=== PATIENT | male | born 1955 | race Caucasian/White ===

== ENCOUNTER 2016-07-15 07:18 | Emergency (ER) | payer BC ==
[~2016-07-15] VITALS: Ht 172.7 cm; Wt 77.1 kg
[~2016-07-15 07:18] MED LIST: EFFIENT10 MG PO; ELIQUIS5 MG PO; HYDROCODONE-AP1 EAC6 PO; KEFLEX500 MG PO; LIPITOR80 MG PO; LISINOPRIL2.5 MG PO; NITROSTAT0.4 MG SUBLING; NOHOMEMEDICATIONS; NORCO 5-325 TA1 EACH PO; PACERONE 200 M200 M1 PO; PROTONIX 20 MG20 M1 PO; TOPROL XL25 MG PO; ULTRACET TABLET1 TAB PO; WELLBUTRIN XL300 M1 PO
[2016-07-15 07:19] VITALS: BP 151/88
[2016-07-15] MEDS ORDERED: EFFIENT10 MG PO (07:22)
[2016-07-15] MEDS ORDERED: NAPROSYN500 MG PO (08:20)
== END 2016-07-15 08:31 | disposition home or self-care (01) ==
LOC: ER 07:18
DX: S93.492A Sprain of other ligament of left ankle, initial encounter (principal); Z95.5 Presence of coronary angioplasty implant and graft; I25.2 Old myocardial infarction; I11.9 Hypertensive heart disease without heart failure; E78.5 Hyperlipidemia, unspecified; Z98.890 Other specified postprocedural states; Z96.0 Presence of urogenital implants; Z88.1 Allergy status to other antibiotic agents; Z88.6 Allergy status to analgesic agent; Z91.018 Allergy to other foods; F17.210 Nicotine dependence, cigarettes, uncomplicated; F10.99 Alcohol use, unspecified with unspecified alcohol-induced disorder; X58.XXXA Exposure to other specified factors, initial encounter; Y93.89 Activity, other specified; Y92.89 Other specified places as the place of occurrence of the external cause; Y99.8 Other external cause status

== ENCOUNTER → 2020-03-15 | Outpatient (CLI) | payer BC, OTHER ==
[~2020-03-15] MED LIST changes: +NAPROSYN500 MG PO
== END ==
LOC: SJCVCIMAG 08:17
PROVIDERS: ATTEND Internal Medicine Cardiovascular Disease
DX: I65.23 Occlusion and stenosis of bilateral carotid arteries (principal); I10 Essential (primary) hypertension; I73.9 Peripheral vascular disease, unspecified; I77.1 Stricture of artery; M79.601 Pain in right arm; Z95.828 Presence of other vascular implants and grafts; Z87.891 Personal history of nicotine dependence

== ENCOUNTER 2020-04-05 10:47 | Inpatient (IN) | payer BC, OTHER ==
[~2020-04-05] VITALS: Ht 172.7 cm; Wt 83.9 kg
--- NOTE | ~2020-04-05 | HC ---
[facility] [place] [address] [place] [address] CONSULTATION Name: IVA DOLL Room #: 354-P ADM IN M.R.#: [id number] Admission: 04/05/20 Attend Phys: Wendi Galeana MD Discharge: Date of : 57 Report #: [id number] THIS REPORT FOR: cc: Sheldon Garcia,Sharif Fleming MD ~ DATE OF SERVICE: 04/09/2020 We were asked to see the patient by the hospitalists. HISTORY OF PRESENT ILLNESS: The patient is a 64-year-old who is COVID-19 positive. The patient was admitted on 04/05 with dizziness. The patient stated that his symptoms started when he was getting out of the shower, called 911 as of note was that the patient tested positive for COVID on 03/28/2020. The patient has a history of coronary artery disease, hyperlipidemia, hypertension and bypass surgery done on 10/24/2015. The patient also has a history of known carotid artery stenosis with a known total occlusion of the left internal carotid artery and a high-grade lesion on the right side. The patient takes Effient and Prasugrel. Since admission in the hospital, the patient has had a CT angiogram that shows the chronic occlusion of the left internal carotid and a 90% proximal internal carotid lesion. The patient states that yesterday his vision was bad. The patient was unable to see much of anything on the right side, but he states that this improved 99% back to normal. There is no other new neurologic complaint. CURRENT MEDICATIONS: Acetaminophen, ondansetron, acyclovir, methylprednisolone, Plavix, lorazepam. ALLERGIES: The patient claims to be allergic to ASPIRIN, AMOXICILLIN and ORANGES. I reviewed the findings of the CT angiogram with the patient and discussed it in light of his symptoms and history. The patient is scheduled to see an hearing and speech assistant. I have suggested that we allow the Ophthalmology consult to occur and to allow the patient to rebound from his COVID diagnosis. The patient is currently on Eliquis and Effient and this should be sufficient protection. The Eliquis we can stop prior to surgery, but the Effient we can continue for its antiplatelet effect. [facility] [address] [place] [address] CONSULTATION Name: IVA DOLL Room #: 354-P ADM IN M.R.#: [id number] Admission: 04/05/20 Attend Phys: Wendi Galeana MD Discharge: Date of : 57 Report #: [id number] Risks and details, options and alternatives were discussed. The patient understands all of this and he agrees with this approach. I will discuss case with the other physicians. Thank you for the consult. By: 1703 10 Sharif Mohamud MD /nt
--- NOTE | ~2020-04-05 | EMS ---
[address] [address] EMS Patient Care Report Name: IVA DOLL Room #: PRE M.R.#: [id number] Admission: Attend Phys: Discharge: Date of : 57 Report #: [id number] THIS REPORT FOR: //name// Report Transmitted: 04/05/2020 10:35 EMS Care Summary [facility] MED-ACT Incident [id number] @ 04/05/2020 10:10 Incident Location [address] [place] [address] Patient IVA DOLL Male, 64 Years 1955 Patient Address [address] [place] [address] Patient History Hypertension (HTN),Hyperlipidemia,Cardiac - Stent, Patient Allergies Aspirin,Amoxicillin, Patient Medications Prasugrel, Metoprolol, Losartan, Rosuvastatin, Chief Complaint dizziness Disposition Transported No Lights/[place] Dispatch Reason Sick Person Transported To [facility] Narrative 1143 arrived on scene to find a male pt lying supine in bed. Pt reports that he is covid positive and tested positive 8 days prior. Pt reports that his symptoms have been mild until he had vomiting x1 last night and acute onset of severe dizziness this morning. Assessment of eyes show nystagmus. Pt denies [facility] [address] [place] [address] EMS Patient Care Report Name: IVA DOLL Room #: PRE Alfonzo#: [id number] Admission: Attend Phys: Discharge: Date of : 57 Report #: [id number] hx of nystagmus or vertigo. Pt denies chest pain, shortness of breath or nausea. Pt reports hx of cardiac, HTN, DM. Pt requests transport to [facility]. Pt was assisted to the cot and packaged for transport. During transport, pt vital signs remained stable and condition unchanged. At [facility] arrival, pt taken to ED room 1. Pt report given to receiving RN. Pt transferred to hospital bed without incident and bed rails left up. Initial Vitals @10:21P: 104,SpO2: 97,[place] Suspected: false @10:19P: 109,R: 16,BP: 137/84,Pain: 0/10,GCS: 15,Temp: 98.3F,Glucose: 114,SpO2: 97,Revised Trauma: 12, @10:30P: 103,R: 16,BP: 158/95,GCS: 15,SpO2: 97,Revised Trauma: 12, @10:40P: 102,R: 16,BP: 136/88,SpO2: 96, Assessments @10:17MENTAL:No Abnormalities,SKIN:No Abnormalities,HEENT:Eyes: Left: Other,Eyes: Right: Other,Head/Face: No Abnormalities,Neck/Airway: No Abnormalities,LUNG SOUNDS:General: No Abnormalities,Left Upper: No Abnormalities,Right Upper: No Abnormalities,Left Lower: No Abnormalities,Right Lower: No Abnormalities,ABDOMEN:General: No Abnormalities,Left Upper: No Abnormalities,Right Upper: No Abnormalities,Left Lower: No Abnormalities,Right Lower: No Abnormalities,PELVIS//GI:No Abnormalities,EXTREMITIES:Left Arm: No Abnormalities,Right Arm: No Abnormalities,Left Leg: No Abnormalities,Right Leg: No Abnormalities,PULSE:NEURO:No Abnormalities, Impression Dizziness Procedures @10:2112-Lead ECG@10:18Surgical Mask on PatientResponse: Unchanged@10:17ALS AssessmentResponse: UnchangedSucceeded Timeline 10:08,Call Received 10:08,Psap Call 10:10,Dispatched 10:10,En Route 10:15,On Scene 10:16,At Patient 10:17,ALS Assessment,Response: UnchangedSucceeded, 10:18,Surgical Mask on Patient,Response: Unchanged 10:19,BP: 137/84 M,PULSE: 109,RR: 16 R,SPO2: 97 Ox,ETCO2: ,B,PAIN: 0,GCS: 15, 10:21,12-Lead ECG, 10:21,BP: / M,PULSE: 104,RR: R,SPO2: 97 Ox,ETCO2: ,BG: ,PAIN: ,GCS: , [address] [address] EMS Patient Care Report Name: IVA DOLL Room #: PRE M.R.#: [id number] Admission: Attend Phys: Discharge: Date of : 57 Report #: [id number] 10:29,Depart Scene 10:30,BP: 158/95 M,PULSE: 103,RR: 16 R,SPO2: 97 Ox,ETCO2: ,BG: ,PAIN: ,GCS: 15, 10:40,BP: 136/88 M,PULSE: 102,RR: 16 R,SPO2: 96 Ox,ETCO2: ,BG: ,PAIN: ,GCS: , 10:43,At Destination 11:12,Call Closed Disclaimer v1.1 Copyright 2020 [employer] This EMS Care Summary contains data elements from the applicable legal record (which may be displayed differently). It is designed to provide pertinent information for the following purposes: continuity of care, clinical quality, and state data reporting. The complete legal record is available to ED staff and administrators of the receiving hospital in [employer]'s Patient Tracker. All data is provided "as is."
[2020-04-05 10:51] VITALS: BP 120/84
[2020-04-05] MEDS ORDERED: DOXYCYCLINE 10100 M2 PO (11:00)
[2020-04-05 11:23] LABS: ABSOLUTE NEUTROPHILS 4.7 thou/uL (1.4-8.2); BASOPHILS 1.3 % (0.0-2.0); HEMATOCRIT 41.7 % (42.0-52.0); LYMPHOCYTES 11.2 % (24.0-44.0); MCH 31.8 pg (26.0-34.0); MCHC 33.6 g/dL (28.0-37.0); MCV 94.6 fL (80.0-100.0); MONOCYTES 5.9 % (1.0-8.0); PLATELET COUNT 279 thou/uL (150-400); POLYS 79.6 % (36.0-66.0); RBC 4.41 mil/uL (4.50-6.00); WBC 5.9 thou/uL (4.0-11.0)
[2020-04-05 11:30] LABS: ANION GAP 15 mmol/L (7-16); BUN 17 mg/dL (7-18); CHLORIDE 107 mmol/L (98-107); CO2 23 mmol/L (21-32); CREATININE 1.2 mg/dL (0.7-1.3); GLUCOSE 124 mg/dL (74-106); POTASSIUM 4.2 mmol/L (3.5-5.1); SODIUM 145 mmol/L (136-145)
[2020-04-05 11:40] LABS: ALBUMIN 3.1 g/dL (3.4-5.0); MAGNESIUM 2.2 mg/dL (1.8-2.4); SGOT 17 U/L (15-37); SGPT 22 U/L (30-65); TOTAL BILIRUBIN 0.6 mg/dL (0.2-1.0); TOTAL PROTEIN 7.5 g/dL (6.4-8.2); TROPONIN-I <0.06 ng/mL (<0.06)
[2020-04-05 12:01] LABS: APTT 27.9 Seconds (24.5-32.8)
[2020-04-05] MEDS ORDERED: ROSUVASTATIN CA20 MG PO (12:49)
[2020-04-05] MEDS ORDERED: PRASUGREL HCL10 MG PO (12:49)
[2020-04-05] MEDS ORDERED: LOSARTAN POTASS50 MG PO (12:50)
[2020-04-05 16:20] VITALS: BP 145/99
[2020-04-05 16:48] VITALS: BP 127/85
[2020-04-05 17:14] VITALS: BP 153/90
[2020-04-05] MEDS ORDERED: BENZONATATE100 MG PO (18:17)
[2020-04-05] MEDS ORDERED: LIVALO4 MG PO (18:18)
--- NOTE | 2020-04-05 18:43 | NUR ---
PT CARE ASSUMED AT 1712 FROM ER. A&Ox4. UP AT [place] IN ROOM. IV PATENT WITH NO REDNESS OR EDEMA, FLUIDS INFUSING. URINAL AT BEDSITE. ADMISSION COMPLEETED. UA NEEDED. SCD'S IN PLACE. COVID POS SINCE 03/28. DR. RAMOS CONSULTED. VITALS STABLE. MEDSURGE. CALL LIGHT IN REACH. WILL CONTINUE TO MONITOR.
[2020-04-05 19:23] VITALS: BP 137/78
[2020-04-05 21:37] VITALS: BP 137/78
--- NOTE | 2020-04-06 02:54 | NUR ---
PT AOX4. PT DENIES PAIN AND SOB WHILE AT REST WHILE ON ROOM AIR. PT REPORTS DIZZINESS WHEN CHANGING POSITIONS. PT RESTING IN BED THROUGHOUT SHIFT, FREQUENT REPOSITIONING ENCOURAGED. PT NOTED TO SHIFT INDEPENDENTLY WHILE IN BED. PT TOLERATING PO INTAKE OF FLUIDS AND HEART HEALTHY DIET WITHOUT ISSUE. PT DENIES NAUSEA. PT VOIDING PER URINAL. PT MEDICAL HISTORY REVEIWED IN CONSIDERATION WITH EMAR. ONCALL [employer] MAINFRAME DEVELOPER NOTIFIED, RECEIVED ORDERS TO DISCONTINUE PREVIOUS INFUSION RATE OF 125ML/HR AND TO START NS INFUSING AT 75ML/HR. PT ENCOURAGED TO NOTIFY STAFF FOR ALL NEEDS, CALL LIGHT WITHIN REACH, BED ALARM ON, BED IN LOWEST POSITION, FREQUENT MONITORING WILL CONTINUE.
[2020-04-06 03:56] VITALS: BP 162/98
[2020-04-06 07:29] VITALS: BP 142/87
[2020-04-06 10:14] LABS: HEMATOCRIT 39.8 % (42.0-52.0); HEMOGLOBIN 13.4 gm/dL (14.0-18.0); MCH 31.7 pg (26.0-34.0); MCHC 33.7 g/dL (28.0-37.0); MCV 93.9 fL (80.0-100.0); RBC 4.23 mil/uL (4.50-6.00); RDW 12.2 % (10.5-14.5); WBC 9.6 thou/uL (4.0-11.0)
[2020-04-06 10:34] LABS: CALCIUM 9.5 mg/dL (8.5-10.1); CREATININE 1.1 mg/dL (0.7-1.3); POTASSIUM 4.2 mmol/L (3.5-5.1)
[2020-04-06 10:40] LABS: URINE BILIRUBIN NEGATIVE (Negative); URINE BLOOD NEGATIVE (Negative); URINE CLARITY CLEAR; URINE COLOR YELLOW; URINE GLUCOSE-RANDOM* NEGATIVE (Negative); URINE KETONES TRACE (Negative); URINE LEUKOCYTES-REFLEX NEGATIVE (Negative); URINE NITRITE-REFLEX NEGATIVE (Negative); URINE PROTEIN (DIPSTICK) NEGATIVE (Negative); URINE UROBILINOGEN 0.2 E.U./dl (0.2-1.0)
[2020-04-06 10:47] LABS: AMP/METHAMP Negative (Negative); BARBITURATES Negative (Negative); BENZODIAZEPINES Negative (Negative); COCAINE Negative (Negative); METHADONE Negative (Negative); OPIATES Negative (Negative); PCP Negative (Negative)
--- NOTE | 2020-04-06 11:18 | NUR ---
PT CARE ASSUMED AT 0700. A&Ox4. IV PATENT WITH NO REDNESS OR EDEMA, FLUIDS INFUSING. RN WAS CALLED TO PT ROOM AT 0920 WITH COMPLAINTS OF CHESTPAIN AND RADIATING DOWN THE RIGHT ARM. VITALS TACHY, IN THE 180-200. STAT EKG PERFORMED, VTACH. ON THE UNIT. SEEN PT. NITRO GIVEN AT 0925, REPEATED x3 EVERY 5 MINUTES. ONE TIME DOSE OF MORPHINE GIVEN FOR CHESTPAIN. DR. DENISE NOTIFIED. RAPID CALLED. LABS DRAWN. STAT CARDIOLOGY CONSULT CALLED. STATUS CHAGED TO CCT. ONE TIME DOSE OF CARDIZEM IV PUSH GIVEN. AMIODERONE IV BOLUS GIVEN. AMIODERONE IV DRIP STARTED. PICC LINE PLACED. ON 2L FOR COMFORT. REPEAT 12 LEAD PERFORMED NOW RUNNING AFIB. PT STABILIZED AND SITTING CALMLY IN BED. CALL LIGHT IN REACH. WILL CONTINUE TO MONITOR. UPDATED.
--- NOTE | 2020-04-06 12:07 | NUR ---
VASCULAR ACCESS CALLED FOR PICC PLACEMENT. ABBI BASILIC WAS WIDELY PATENT WITH USG. PT'S LABS,MEDS,HX,ORDER AND CONSENT VERIFIED. DISCUSSED BENEFITS AND RISK OF PICC WITH PT, VERBALIZED UNDERSTANDING. 4FR DL POWER PICC TRIMMED TO 44CM INSERTED TO 3CM EXTERNAL WITH BRISK BR. STAT CXR ORDERED. PT TOLERATED WELL.
--- NOTE | 2020-04-06 12:37 | NUR ---
CXR CONFIRMED PICC IN SVC, RELEASED FOR IMMEDIATE USE PER PROTOCOL TO ROSALES RN
--- NOTE | 2020-04-06 14:04 | EKG ---
[place] [address] [facility] [place] [address] ELECTROCARDIOGRAM REPORT Name: IVA DOLL Room #: 354-P ADM IN M.R.#: [id number] Admission: 04/05/20 Attend Phys: Wendi Galeana MD Discharge: Date of : 57 Report #: [id number] [facility] ED Test Date: 2020-04-05 Test Time: 11:16:26 Pat Name: IVA DOLL Department: Room: 354 Gender: M Senior Information Security Consultant: unk : 1955 Requested By: Kahlil Ernst Order Number: [id number] MD: Nimesh Alvarez Measurements Intervals [place] Rate: 85 P: 77 NH: 149 QRS: 33 QRSD: 90 T: -32 QT: 348 QTc: 414 Interpretive Statements Sinus rhythm Borderline T abnormalities, inferior leads Baseline wander in lead(s) V4 Compared to ECG 02/12/2016 09:23:03 T-wave abnormality now present Electronically Signed On 04-06-2020 14:04:35 WEATHERIZATION COORDINATOR by Nimesh Alvarez [email or web address] <ELECTRONICALLY SIGNED> By: Nimesh Alvarez MD 04/06/20 1404 1116 111 Nimesh Alvarez MD /MARIANO
[2020-04-06 15:20] VITALS: BP 124/82
[2020-04-06 20:23] VITALS: BP 131/79
[2020-04-06 23:45] VITALS: BP 125/76
[2020-04-07 05:39] VITALS: BP 139/91
--- NOTE | 2020-04-07 06:13 | NUR ---
PT MAKING PROGRESS TOWARDS GOALS. PT ON AMIO GTT AT 0.MG/MIN OVERNIGHT. NOTED HEART RATE INITIALLY IN LOW 60'S UPON INITIAL ASSESSMENT. NOTED HR TRENDING DOWN TO MID 40'S OVERNIGHT. SEE VS FOR BLOOD PRESSURES. PT AT MIDNIGHT AND THIS AM WAS ALERT, ORIENTED AND DENIED ANY COMPLAINTS OF PAIN. HEART RHYTHM SINUS AND SINUS NATALIIA OVERNIGHT. NO NOTED TACHYCARDIA'S.
[2020-04-07 07:23] VITALS: BP 132/85
[2020-04-07 08:00] VITALS: BP 132/85
--- NOTE | 2020-04-07 12:21 | EKG ---
[address] [address] ELECTROCARDIOGRAM REPORT Name: IVA DOLL Room #: 354-P ADM IN M.R.#: [id number] Admission: 04/05/20 Attend Phys: Wendi Galeana MD Discharge: Date of : 57 Report #: [id number] [facility] Test Date: 2020-04-06 Test Time: 09:35:15 Pat Name: IVA DOLL Department: Room: 354 P Gender: M Risk Intern: JNGUM : 1955 Requested By: Sera Borrero Order Number: [id number] MD: Nimesh Alvarez Measurements Intervals [place] Rate: 196 P: [place]: QRS: 41 QRSD: 91 T: 223 QT: 244 QTc: 441 Interpretive Statements Atrial fibrillation with rapid V-rate with aberration Electronically Signed On 04-07-2020 12:21:29 BUNDLER by Nimesh Alvarez [email or web address] <ELECTRONICALLY SIGNED> By: Nimesh Alvarez MD 04/07/20 1221 0935 0935 Nimesh Alvarez MD /MARIANO
--- NOTE | 2020-04-07 14:13 | EKG ---
[place] [address] [employer] [address] ELECTROCARDIOGRAM REPORT Name: IVA DOLL Room #: 354-P ADM IN M.R.#: [id number] Admission: 04/05/20 Attend Phys: Wendi Galeana MD Discharge: Date of : 57 Report #: [id number] [facility] Test Date: 2020-04-06 Test Time: 09:50:41 Pat Name: IVA DOLL Department: Room: 354 P Gender: M Tree Inspector: : 1955 Requested By: Wendi Galeana Order Number: [id number] MD: Nimesh Alvarez Measurements Intervals [place] Rate: 178 P: [place]: QRS: 29 QRSD: 85 T: 205 QT: 240 QTc: 413 Interpretive Statements Atrial fibrillation with rapid V-rate Probable LVH with secondary repol abnrm ST depression, probably rate related Compared to ECG 04/06/2020 09:35:15 ST (T wave) deviation now present Electronically Signed On 04-07-2020 14:12:44 SUPERVISOR PICKING CREW by Nimesh Alvarez [email or web address] <ELECTRONICALLY SIGNED> By: Nimesh Alvarez MD 04/07/20 1412 0950 0950 Nimesh Alvarez MD /MARIANO
[2020-04-07 15:25] VITALS: BP 105/67
[2020-04-07 19:04] VITALS: BP 92/54
[2020-04-08 03:29] VITALS: BP 147/78
--- NOTE | 2020-04-08 03:38 | NUR ---
resting quietly, denies pain. complains that he has blurred vision tonight. blood pressure wnl's this morning. continues on iv fluids. careplan reviewed.
[2020-04-08 06:01] LABS: ABSOLUTE NEUTROPHILS 4.8 thou/uL (1.4-8.2); BASOPHILS 0.3 % (0.0-2.0); EOSINOPHILS 1.4 % (0.0-3.0); HEMATOCRIT 37.7 % (42.0-52.0); HEMOGLOBIN 12.5 gm/dL (14.0-18.0); LYMPHOCYTES 17.6 % (24.0-44.0); MCHC 33.1 g/dL (28.0-37.0); MCV 93.9 fL (80.0-100.0); MONOCYTES 8.8 % (1.0-8.0); PLATELET COUNT 266 thou/uL (150-400); POLYS 71.9 % (36.0-66.0); RBC 4.01 mil/uL (4.50-6.00); RDW 12.5 % (10.5-14.5); WBC 6.7 thou/uL (4.0-11.0)
[2020-04-08 06:22] LABS: ALBUMIN 2.4 g/dL (3.4-5.0); CALCIUM 8.6 mg/dL (8.5-10.1); PHOSPHORUS 2.5 mg/dL (2.6-4.7); POTASSIUM 4.2 mmol/L (3.5-5.1); TOTAL BILIRUBIN 0.4 mg/dL (0.2-1.0); TOTAL PROTEIN 5.6 g/dL (6.4-8.2)
[2020-04-08 08:13] VITALS: BP 138/88
[2020-04-08 11:23] VITALS: BP 121/73
[2020-04-08 16:02] VITALS: BP 117/80
[2020-04-08 19:26] VITALS: BP 143/87
[2020-04-08 20:00] VITALS: BP 143/87
[2020-04-09 00:03] VITALS: BP 136/85
[2020-04-09 04:07] VITALS: BP 135/86
--- NOTE | 2020-04-09 06:26 | NUR ---
Patient resting, VSS, afebrile, denies dizziness,nausea or queasiness but states that he is unable to read. When he closes right eye, he can read with the left and that right eye will not focus. Per assessments, patient straining to put images/letters together to make a clear word.MRI schedule this AM.Encouraging PO intake and UOP adequate
[2020-04-09 07:09] VITALS: BP 143/82
[2020-04-09 11:13] VITALS: BP 115/68
--- NOTE | 2020-04-09 15:09 | NUR ---
INITIAL ASSESSMENT: SW reviewed chart and spoke with nursing and attending physician. Pt was admitted from home due to vertigo. Pt placed in Enhanced Isolation due to having positive COVID test on 03/28. Pt is afebrile and not requiring O2. MRI of the brain ordered today. SW placed call to pt's room. No answer. Per chart, pt is alert/orientated x 4. Pt lives at home with his . Prior to admission, pt was independent with ADLs. No use of DME. 2 steps to enter the home and 12 steps inside. Discharge home is anticipated in 1-2 days. Therapy evals completed and pt should be able to return directly home with no needs. VINICIO is following to assist as needed with discharge planning.
[2020-04-09 19:28] VITALS: BP 138/80
[2020-04-10 02:55] VITALS: BP 120/85
--- NOTE | 2020-04-10 05:00 | NUR ---
Pt. stated he slept some last night. Verbalized he hasn't been sleeping good because he has a lot in his mind. Dizziness and problems with vision has resolved. Tolerating room air well and denies being short of breath. Cont. on enhanced precaution , afebrile. SB-SR. Voiding per urinal. Making progress towards care plan goals.
[2020-04-10 08:25] VITALS: BP 146/88
[2020-04-10 11:18] VITALS: BP 146/88
[2020-04-10] MEDS ORDERED: VITAMIN D325 MC1 PO (12:38)
[2020-04-10] MEDS ORDERED: ELIQUIS5 MG PO (12:38)
[2020-04-10] MEDS ORDERED: ACEROLA C500 MG PO (12:38)
[2020-04-10] MEDS ORDERED: PACERONE 200 M200 M1 PO (12:41)
--- NOTE | 2020-04-10 14:09 | NUR ---
DISCHARGE NOTE: SW reviewed chart and spoke with nursing and attending physician. Pt remains in Enhanced Isolation due to COVID-19. Pt is medically stable for discharge home today. Pt to follow up with CTS and opthamology as an outpatient. SW spoke with pt via phone. Introduced role of SW. Pt is alert/orientated x 4. Pt reports that he is independent with ADLs. No use of DME. No hx of HH services or post-acute placement. Pt's PCP is Dr. Garcia. Pt's to provide transportation home. No SW needs identified at this time, but is available to assist should needs arise.
[2020-04-10 15:28] VITALS: BP 146/88
[2020-04-10 15:49] VITALS: BP 133/84
[2020-04-10 16:00] VITALS: BP 146/88
--- NOTE | 2020-04-11 14:14 | HC ---
[facility] [place] [address] [place] [address] CONSULTATION Name: IVA DOLL Room #: 354-P [facility] IN M.R.#: [id number] Admission: 04/05/20 Attend Phys: Wendi Galeana MD Discharge: 04/10/20 Date of : 57 Report #: [id number] THIS REPORT FOR: cc: Sheldon Garcia,Nimesh Newman MD ~ CARDIOLOGY CONSULTATION REASON FOR CONSULTATION: Atrial fibrillation. HISTORY OF PRESENT ILLNESS: The patient is a 64-year-old male with a history of coronary artery disease status post CABG in 2016 and [place] in 2013, peripheral vascular disease with a known right-sided 60% lesion of the carotid artery as well as renal artery stenosis, status post renal artery stents. He also has history of hypertension, hyperlipidemia and last saw Dr. Steen in the office on 03/15/2020. His last stress echo was in 2017, which was nonischemic and an EF of 60%. The patient was admitted here to the hospital on 04/05/2020 and was diagnosed with COVID on 03/28/2020. The patient presented to the ER with main complaint of dizziness. He had an extensive neurologic evaluation including a CT scan, which showed no acute process, was seen by Neurology and was diagnosed with vertigo, likely related to his COVID. He has also been seen by Infectious Disease. This morning, the patient developed chest pain in the setting of atrial fibrillation with rapid ventricular response. I recommended initiation of IV amiodarone and after an hour or two, the patient converted back to sinus rhythm. The patient is currently doing well, in no acute distress and resting comfortably. PAST MEDICAL HISTORY: As above. SOCIAL HISTORY: Quit smoking. FAMILY HISTORY: Noncontributory. ALLERGIES: Have been reviewed. MEDICATIONS: Have been reviewed and include the IV amiodarone. He received some IV diltiazem once. He is receiving morphine, zinc, thiamine, Effient, metoprolol, losartan, famotidine, atorvastatin, vitamin C, ivermectin, nitro, Zofran. PHYSICAL EXAMINATION: VITAL SIGNS: Temperature 36.3, pulse 75, respirations 16, blood pressure 119/78, sats 93%. GENERAL: The patient is in no acute distress, resting comfortably. LABORATORY DATA: His white count is 9.6, hemoglobin 13, platelets 307. INR [address]. [address] [address] CONSULTATION Name: IVA DOLL Room #: 354-P [facility] IN M.R.#: [id number] Admission: 04/05/20 Attend Phys: Wendi Galeana MD Discharge: 04/10/20 Date of : 57 Report #: [id number] Chemistry: Sodium 137, potassium 4.2, creatinine 1.1. Troponin is negative. ProBNP is 495. Chest x-ray with no acute process. His initial EKG showed sinus rhythm with no ischemic changes. Then, he had several EKGs showing atrial fibrillation with rapid ventricular response. On telemetry shows that he had atrial fibrillation with rapid ventricular response with rates up to the 190s. Currently, he is in sinus rhythm at around 50-60. ASSESSMENT AND PLAN: Atrial fibrillation, new onset, likely related to his COVID infection. I recommend that we continue with IV amiodarone for the time being. We can transition over to oral amiodarone eventually. Given his multiple risk factors for stroke, I would consider initiation of anticoagulation at some point. We will continue to follow. <ELECTRONICALLY SIGNED> By: Nimesh Alvarez MD 04/11/20 1414 1453 1904 Nimesh Alvarez MD /nt
== END 2020-04-10 17:28 | disposition home or self-care (01) | DRG 69 ==
LOC: ER 10:47 → 3W 17:00 → EROBS 17:08 → 3W 17:08
PROVIDERS: Emergency Medicine; Internal Medicine; ADMIT Internal Medicine; ATTEND Internal Medicine
DX: G45.9 Transient cerebral ischemic attack, unspecified (principal); U07.1 COVID-19; J12.82 Pneumonia due to coronavirus disease 2019; I48.20 Chronic atrial fibrillation, unspecified; J44.0 Chronic obstructive pulmonary disease with (acute) lower respiratory infection; I25.10 Atherosclerotic heart disease of native coronary artery without angina pectoris; E78.5 Hyperlipidemia, unspecified; I10 Essential (primary) hypertension; Z96.0 Presence of urogenital implants; E78.00 Pure hypercholesterolemia, unspecified; H81.23 Vestibular neuronitis, bilateral; I73.9 Peripheral vascular disease, unspecified; I65.02 Occlusion and stenosis of left vertebral artery; I65.23 Occlusion and stenosis of bilateral carotid arteries; Z79.01 Long term (current) use of anticoagulants; Z95.5 Presence of coronary angioplasty implant and graft; I25.2 Old myocardial infarction; Z79.899 Other long term (current) drug therapy; Z88.6 Allergy status to analgesic agent; Z95.1 Presence of aortocoronary bypass graft; Z87.891 Personal history of nicotine dependence; Z23 Encounter for immunization
CPT/HCPCS: 10779; 10879; 27000

== ENCOUNTER → 2020-04-30 | Outpatient (CLI) | payer BC, OTHER ==
[~2020-04-30] VITALS: Ht 172.7 cm; Wt 77.6 kg
[~2020-04-30] MED LIST changes: +ACEROLA C500 MG PO; +BENZONATATE100 MG PO; +DOXYCYCLINE 10100 M2 PO; +LIVALO4 MG PO; +LOSARTAN POTASS50 MG PO; +PRASUGREL HCL10 MG PO; +ROSUVASTATIN CA20 MG PO; +VITAMIN D325 MC1 PO
[2020-04-30 07:23] VITALS: BP 132/80
[2020-04-30 07:40] LABS: HEMATOCRIT 42.6 % (42.0-52.0); MCH 31.2 pg (26.0-34.0); MCHC 32.9 g/dL (28.0-37.0); MCV 94.9 fL (80.0-100.0); RBC 4.49 mil/uL (4.50-6.00); RDW 13.6 % (10.5-14.5); WBC 7.2 thou/uL (4.0-11.0)
[2020-04-30 08:07] LABS: CALCIUM 9.3 mg/dL (8.5-10.1); CREATININE 1.2 mg/dL (0.7-1.3)
[2020-04-30 08:15] LABS: POTASSIUM 4.4 mmol/L (3.5-5.1)
== END | disposition home or self-care (01) ==
LOC: CATH 06:42
PROVIDERS: ATTEND Nuclear Medicine Nuclear Cardiology
DX: I65.23 Occlusion and stenosis of bilateral carotid arteries (principal); I70.1 Atherosclerosis of renal artery; I73.9 Peripheral vascular disease, unspecified; I10 Essential (primary) hypertension; I25.10 Atherosclerotic heart disease of native coronary artery without angina pectoris; I25.2 Old myocardial infarction; E78.5 Hyperlipidemia, unspecified; I48.91 Unspecified atrial fibrillation; Z98.890 Other specified postprocedural states; Z79.899 Other long term (current) drug therapy; Z79.01 Long term (current) use of anticoagulants; Z87.891 Personal history of nicotine dependence; Z95.1 Presence of aortocoronary bypass graft; Z88.8 Allergy status to other drugs, medicaments and biological substances; Z20.822 Contact with and (suspected) exposure to COVID-19

== ENCOUNTER 2020-06-09 05:15 | Emergency (ER) | payer BC, OTHER ==
[~2020-06-09] VITALS: Ht 172.7 cm; Wt 81.7 kg
[2020-06-09 05:19] VITALS: BP 176/101
[2020-06-09] MEDS ORDERED: XARELTO20 MG PO (05:25)
[2020-06-09] MEDS ORDERED: EFFIENT5 MG PO (05:28)
[2020-06-09 05:34] LABS: ABSOLUTE NEUTROPHILS 2.6 thou/uL (1.4-8.2); BASOPHILS 1.1 % (0.0-2.0); HEMATOCRIT 41.2 % (42.0-52.0); HEMOGLOBIN 13.6 gm/dL (14.0-18.0); LYMPHOCYTES 26.3 % (24.0-44.0); MCH 31.6 pg (26.0-34.0); MCHC 33.1 g/dL (28.0-37.0); MCV 95.6 fL (80.0-100.0); MONOCYTES 10.5 % (1.0-8.0); PLATELET COUNT 208 thou/uL (150-400); POLYS 54.1 % (36.0-66.0); RBC 4.31 mil/uL (4.50-6.00); RDW 14.8 % (10.5-14.5); WBC 4.8 thou/uL (4.0-11.0)
[2020-06-09 05:41] LABS: ANION GAP 8 mmol/L (7-16); BUN 20 mg/dL (7-18); CHLORIDE 104 mmol/L (98-107); CO2 25 mmol/L (21-32); CREATININE 1.4 mg/dL (0.7-1.3); GLUCOSE 109 mg/dL (74-106); POTASSIUM 4.6 mmol/L (3.5-5.1); SODIUM 137 mmol/L (136-145)
[2020-06-09 05:49] LABS: APTT 28.2 Seconds (24.5-32.8)
[2020-06-09 06:05] LABS: TROPONIN-I <0.06 ng/mL (<0.06)
[2020-06-09 07:01] VITALS: BP 136/83
[2020-06-09 08:49] VITALS: BP 123/70
--- NOTE | 2020-06-10 08:35 | HC ---
[facility] [place] [address] [place] [address] CONSULTATION Name: IVA DOLL [facility] [id number] Admission: 06/09/20 Attend Phys: Discharge: 06/09/20 Date of : 57 Report #: [id number] THIS REPORT FOR: cc: Sheldon Garcia,Sheldon Olmstead,Yoandy Woodruff MD ~ DATE OF SERVICE: 06/09/2020 CARDIOLOGY CONSULTATION INDICATION: Chest pain. HISTORY OF PRESENT ILLNESS: This is a 64-year-old gentleman with a history of CAD, status post CABG in 2016, [place], peripheral vascular disease, renal stent, hypertension, hypercholesterolemia, and paroxysmal atrial fibrillation, presenting with chest pain. Yesterday morning, he developed a discomfort in his left upper chest area just below the shoulder. He reports no changes with movement of the arms or deep inspiration. It has been persistent on and off since yesterday morning. He denies any associated shortness of breath, diaphoresis or fevers. He was recently hospitalized in March with dizziness and found to be in atrial fibrillation. He converted to sinus rhythm and has been maintained on anticoagulation therapy. He has recently been evaluated for carotid and subclavian disease, followed by Interventional Radiology and Cardiothoracic Surgery, medical therapy is recommended. There is no history of PND or orthopnea. PAST MEDICAL HISTORY: CABG in 2015, [place] in 2013, renal stents, peripheral arterial disease including occluded left carotid system, hypertension, hypercholesterolemia, paroxysmal atrial fibrillation. ALLERGIES: ASPIRIN. CURRENT MEDICATIONS: Include Effient, Eliquis 5 mg twice a day, amiodarone, Crestor, losartan. SOCIAL HISTORY: Denies tobacco use. FAMILY HISTORY: Negative for premature CAD. REVIEW OF SYSTEMS: A full 10-point review of systems performed. Only the pertinent positives and negatives are described in the HPI. PHYSICAL EXAMINATION: VITAL SIGNS: Blood pressure is 130/70, heart rate is 65 beats per minute. GENERAL APPEARANCE: This is a well-developed, well-nourished male in [address] [address] CONSULTATION Name: IVA DOLL [facility] #: [facility] [id number] Admission: 06/09/20 Attend Phys: Discharge: 06/09/20 Date of : 57 Report #: [id number]. HEENT: Normocephalic and atraumatic. Oral mucosa moist. NECK: Supple. LUNGS: Clear to auscultation. CARDIAC: Regular rate and rhythm, S1 and S2 positive. ABDOMEN: Soft, nontender. EXTREMITIES: No peripheral edema, no cyanosis. IMAGING STUDIES: ECG reveals sinus rhythm, no acute ST segment changes. LABORATORY VALUES: Initial troponin is negative. ASSESSMENT AND PLAN: 1. Chest pain syndrome, his pain is localized to the left upper and outer chest area, reproducible with palpation. Doubt this is ischemia related, more likely musculoskeletal or pleuritic. Overall, he appears stable. Consider discharge and follow up as an outpatient. 2. Coronary artery disease/coronary artery bypass surgery, continue with Effient. He has a history of ALLERGY TO ASPIRIN. 3. Peripheral vascular disease, offers no complaints of weakness or claudication. 4. Paroxysmal atrial fibrillation, remains in sinus rhythm, continue on anticoagulation therapy. 5. Hypertension, stable blood pressure, on the current regimen. 6. Hypercholesterolemia, continue with statin therapy. <ELECTRONICALLY SIGNED> By: Yoandy Moreno MD 06/10/20 0835 0844 0854 Yoandy Moreno MD /nt
--- NOTE | 2020-06-11 07:36 | EKG ---
[place] [address] [facility] [place] [address] ELECTROCARDIOGRAM REPORT Name: IVA DOLL Room #: DEP [facility]#: [id number] Admission: 06/09/20 Attend Phys: Discharge: 06/09/20 Date of : 57 Report #: [id number] [facility] ED Test Date: 2020-06-09 Test Time: 05:19:15 Pat Name: IVA DOLL Department: Room: 170 Gender: M Clinical Studies Specialist: SOUMYA : 1955 Requested By: Hardik Borjas Order Number: [id number] MD: Darnell Ramirez Measurements Intervals [place] Rate: 65 P: 59 OR: 161 QRS: 45 QRSD: 96 T: 44 QT: 408 QTc: 425 Interpretive Statements Sinus rhythm Probable left atrial enlargement Probable anterior infarct, old Compared to ECG 04/06/2020 09:50:41 Myocardial infarct finding now present Atrial fibrillation no longer present ST (T wave) deviation no longer present Electronically Signed On 06-11-2020 7:36:21 TURF AND GROUNDS SUPERVISOR by Darnell Ramirez [email or web address] <ELECTRONICALLY SIGNED> By: Darnell Ramirez MD, [facility] 06/11/20 0736 8 8 Darnell Ramirez MD, [facility] /EPI
== END 2020-06-09 08:49 | disposition home or self-care (01) ==
LOC: ER 05:15 → EROBS 06:43 → ER 08:49
PROVIDERS: Emergency Medicine
DX: R07.89 Other chest pain (principal); I10 Essential (primary) hypertension; I25.10 Atherosclerotic heart disease of native coronary artery without angina pectoris; I25.2 Old myocardial infarction; E78.5 Hyperlipidemia, unspecified; I48.91 Unspecified atrial fibrillation; Z95.1 Presence of aortocoronary bypass graft; Z79.899 Other long term (current) drug therapy; Z87.891 Personal history of nicotine dependence; Z88.1 Allergy status to other antibiotic agents; Z88.6 Allergy status to analgesic agent; Z91.018 Allergy to other foods

== ENCOUNTER → 2020-10-10 | Outpatient (CLI) | payer BC, OTHER ==
[~2020-10-10] MED LIST changes: +EFFIENT5 MG PO; +XARELTO20 MG PO
== END ==
LOC: SJCVCIMAG 16:11
PROVIDERS: ATTEND Internal Medicine Cardiovascular Disease
DX: I70.201 Unspecified atherosclerosis of native arteries of extremities, right leg (principal); M79.661 Pain in right lower leg

== ENCOUNTER → 2020-10-15 | Outpatient (CLI) | payer BC, OTHER ==
[~2020-10-15] VITALS: Ht 172.7 cm; Wt 77.3 kg
[~2020-10-15] MED LIST changes: +C-10001000 M1 PO; +COENZYME Q10200 M2 PO
[2020-10-15 08:43] VITALS: BP 138/82
[2020-10-15 09:02] LABS: HEMATOCRIT 41.2 % (42.0-52.0); HEMOGLOBIN 13.9 gm/dL (14.0-18.0); MCH 32.1 pg (26.0-34.0); MCHC 33.8 g/dL (28.0-37.0); RBC 4.33 mil/uL (4.50-6.00); RDW 13.8 % (10.5-14.5); WBC 5.1 thou/uL (4.0-11.0)
[2020-10-15 09:11] LABS: CALCIUM 8.9 mg/dL (8.5-10.1); POTASSIUM 5.3 mmol/L (3.5-5.1)
--- NOTE | 2020-10-15 10:26 | EKG ---
[place] [address] [facility] [address] [place] [address] ELECTROCARDIOGRAM REPORT Name: IVA DOLL [facility] [id number] Admission: 10/15/20 Attend Phys: Neel Valentin MD Discharge: Date of : 57 Report #: [id number] [facility] Test Date: 2020-10-15 Test Time: 08:25:42 Pat Name: IVA DOLL Department: Room: Gender: Pharmacy Tech: ELEAZAR : 1955 Requested By: Solo Steen Order Number: [id number] : Darnell Ramirez Measurements Intervals [place] Rate: 53 P: 52 [place]: 153 QRS: 27 QRSD: 98 T: 15 QT: 422 QTc: 397 Interpretive Statements Sinus rhythm Probable left ventricular hypertrophy Compared to ECG 06/09/2020 05:19:15 Myocardial infarct finding no longer present Electronically Signed On 10-15-2020 10:26:06 CDT by Darnell Ramirez [email or web address] <ELECTRONICALLY SIGNED> By: Darnell Ramirez MD, [facility] 10/15/20 1026 824 4 Darnell Ramirez MD, FACC /EPI
--- NOTE | 2020-10-17 10:27 | CATHLAB ---
[facility] [place] [address] [place] [address] INVASIVE PROCEDURE REPORT Name: IVA DOLL Room #: REG ELIANA Gerardo.#: [id number] Admission: 10/15/20 Attend Phys: Neel Valentin MD Discharge: Date of : 57 Report #: [id number] THIS REPORT FOR: cc: Sheldon Garcia Steven F. DO Mancuso, Gerald M. 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 Coronary angiography was performed using coronary diagnostic catheters. The right coronary system was accessed and visualized with a JR4 catheter. The left coronary system was accessed and visualized with a JL4 catheter. The left ventricle was accessed and visualized with a PIGTAIL catheter. The patient tolerated the procedure well and there were no complications associated with the procedure. There was no hematoma. Intraoperative Conscious Sedation Fentanyl 100 mcg Versed 2 mg Fluoro Time: 27.90 minutes Dose: DAP 92424.52 cGycm2 Contrast Type and Amount: Omnipaque 85 ml Hemodynamics The aortic pressure is 160/82 mmHg with a mean of 110 mmHg. The left ventricular pressure is 146/6 mmHg with a mean of mmHg. The left [facility] [address] [place] [address] INVASIVE PROCEDURE REPORT Name: IVA DOLL Room #: REG [facility].#: [id number] Admission: 10/15/20 Attend Phys: Neel Valentin, Discharge: Date of : 57 Report #: [id number] ventricular end diastolic pressure is 20 mmHg. PCI Technique Lesion Percutaneous coronary intervention was performed on the Peroneal. Conclusion #1 Normal left ventricular size EF lower limits of normal 50% range with an inferior basilar hypokinetic segment. #2 left main is significantly diseased 70% small calcified filling a circumflex OM the LAD is occluded. #3 the LAD is proximally occluded fills via a MALIK graft. MALIK graft is widely patent. In filling the LAD briskly. Peers to be a jump graft to the diagonal #4 [place] right coronary artery is moderate size and caliber calcification no occlusive disease filling the smaller PDA #5 SVG to OM is intact with only mild irregularity the OM system briskly fills widely patent. Recommendations and plan: Continue aggressive risk factor modification. There is no indication for coronary intervention. <ELECTRONICALLY SIGNED> By: Solo Steen MD, FACC 10/17/20 1026 1026 1026 Solo Steen MD, FACC /INF
== END | disposition home or self-care (01) ==
LOC: CATH 07:50
PROVIDERS: Internal Medicine Cardiovascular Disease; ATTEND Nuclear Medicine Nuclear Cardiology
DX: I25.10 Atherosclerotic heart disease of native coronary artery without angina pectoris (principal); I70.238 Atherosclerosis of native arteries of right leg with ulceration of other part of lower leg; L97.919 Non-pressure chronic ulcer of unspecified part of right lower leg with unspecified severity; I70.211 Atherosclerosis of native arteries of extremities with intermittent claudication, right leg; I70.1 Atherosclerosis of renal artery; I10 Essential (primary) hypertension; I48.91 Unspecified atrial fibrillation; E78.5 Hyperlipidemia, unspecified; I25.2 Old myocardial infarction; K21.9 Gastro-esophageal reflux disease without esophagitis; Z95.1 Presence of aortocoronary bypass graft; Z98.890 Other specified postprocedural states; Z79.899 Other long term (current) drug therapy; Z79.01 Long term (current) use of anticoagulants; Z87.891 Personal history of nicotine dependence; Z88.8 Allergy status to other drugs, medicaments and biological substances; Z20.822 Contact with and (suspected) exposure to COVID-19

== ENCOUNTER → 2021-01-08 | Outpatient (CLI) | payer BC, OTHER | LOC: SJCVCIMAG 08:44 | PROVIDERS: ATTEND Nuclear Medicine Nuclear Cardiology | DX: I65.23 Occlusion and stenosis of bilateral carotid arteries (principal); I70.201 Unspecified atherosclerosis of native arteries of extremities, right leg; I10 Essential (primary) hypertension; E78.5 Hyperlipidemia, unspecified; I48.0 Paroxysmal atrial fibrillation; I25.10 Atherosclerotic heart disease of native coronary artery without angina pectoris; Z95.1 Presence of aortocoronary bypass graft; E78.00 Pure hypercholesterolemia, unspecified; Z88.1 Allergy status to other antibiotic agents; Z88.8 Allergy status to other drugs, medicaments and biological substances; Z79.899 Other long term (current) drug therapy; Z72.89 Other problems related to lifestyle; Z87.891 Personal history of nicotine dependence ==

== ENCOUNTER → 2021-03-25 | Outpatient (CLI) | payer BC, OTHER | LOC: SJCVCIMAG 13:06 | PROVIDERS: ATTEND Nuclear Medicine Nuclear Cardiology | DX: I70.201 Unspecified atherosclerosis of native arteries of extremities, right leg (principal); M79.604 Pain in right leg ==

== ENCOUNTER 2021-05-29 05:42 | Emergency (ER) | payer OTHER ==
[~2021-05-29] VITALS: Ht 170.2 cm; Wt 82.6 kg
[2021-05-29 06:51] LABS: CALCIUM 8.7 mg/dL (8.5-10.1); CREATININE 1.1 mg/dL (0.7-1.3); POTASSIUM 3.9 mmol/L (3.5-5.1)
[2021-05-29 06:59] LABS: ABSOLUTE NEUTROPHILS 2.8 thou/uL (1.4-8.2); BASOPHILS 0.9 % (0.0-2.0); EOSINOPHILS 5.7 % (0.0-3.0); HEMATOCRIT 43.1 % (42.0-52.0); HEMOGLOBIN 14.3 gm/dL (14.0-18.0); LYMPHOCYTES 30.1 % (24.0-44.0); MCH 30.8 pg (26.0-34.0); MCHC 33.3 g/dL (28.0-37.0); MCV 92.4 fL (80.0-100.0); MONOCYTES 10.2 % (1.0-8.0); PLATELET COUNT 186 thou/uL (150-400); POLYS 53.1 % (36.0-66.0); RBC 4.66 mil/uL (4.50-6.00); RDW 13.7 % (10.5-14.5); WBC 5.3 thou/uL (4.0-11.0)
[2021-05-29 07:01] LABS: ALBUMIN 3.8 g/dL (3.4-5.0); TOTAL BILIRUBIN 0.9 mg/dL (0.2-1.0); TOTAL PROTEIN 6.8 g/dL (6.4-8.2)
[2021-05-29 07:02] LABS: APTT 38.5 Seconds (24.5-32.8); INR 1.36; PROTIME 14.6 Seconds (10.5-12.1)
--- NOTE | 2021-05-29 07:03 | EKG ---
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 : 1955 Requested By: Redd Huff Order Number: [id number] MD: Darnell Ramirez Measurements Intervals [place] Rate: 73 P: 63 [place]: 152 QRS: 34 QRSD: 92 T: 12 QT: 377 QTc: 416 Interpretive Statements Sinus rhythm Probable left atrial enlargement Probable LVH with secondary repol abnrm Compared to ECG 10/15/2020 08:25:42 No significant changes Electronically Signed On 05-29-2021 7:03:14 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
[2021-05-29 09:26] VITALS: BP 147/104
== END 2021-05-29 09:30 | disposition home or self-care (01) ==
LOC: ER 05:42
PROVIDERS: Emergency Medicine
DX: R07.89 Other chest pain (principal); I10 Essential (primary) hypertension; E78.5 Hyperlipidemia, unspecified; Z79.899 Other long term (current) drug therapy; Z87.891 Personal history of nicotine dependence; Z88.0 Allergy status to penicillin; Z88.6 Allergy status to analgesic agent; Z91.02 Food additives allergy status

== ENCOUNTER → 2021-05-30 | Outpatient (CLI) | payer OTHER | LOC: SJCVCIMAG 08:00 | PROVIDERS: ATTEND Internal Medicine Cardiovascular Disease | DX: I25.10 Atherosclerotic heart disease of native coronary artery without angina pectoris (principal); I48.0 Paroxysmal atrial fibrillation; I10 Essential (primary) hypertension; E78.00 Pure hypercholesterolemia, unspecified; I73.9 Peripheral vascular disease, unspecified; I70.1 Atherosclerosis of renal artery; I77.9 Disorder of arteries and arterioles, unspecified; F17.210 Nicotine dependence, cigarettes, uncomplicated; Z95.1 Presence of aortocoronary bypass graft; Z72.89 Other problems related to lifestyle; Z82.49 Family history of ischemic heart disease and other diseases of the circulatory system; Z88.6 Allergy status to analgesic agent; Z88.1 Allergy status to other antibiotic agents; Z79.899 Other long term (current) drug therapy ==